=== PATIENT | male | born 1975 | race Caucasian/White ===

== ENCOUNTER 2017-03-09 18:32 | Inpatient (IN) | payer OTHER ==
[~2017-03-09] VITALS: Ht 167.6 cm; Wt 86.2 kg
--- NOTE | ~2017-03-09 | HC ---
[facility] [address] [place] [address] CONSULTATION Name: JOE JULIAN Room #: 438-P ADM IN M.R.#: [id number] Admission: 03/09/17 Attend Phys: Graham Perez MD Discharge: Date of : 71 Report #: [id number] THIS REPORT FOR: //name// CC: Susie Perez REASON FOR CONSULTATION: The patient is a 41-year-old male who was admitted with multiple episodes of hematemesis last evening. HISTORY OF PRESENT ILLNESS: This 41-year-old male reports he has not had any previous gastrointestinal problems. He reports that yesterday afternoon he ate 2 tamales. He said he actually felt a little full and he said he ate only 2 tamales and felt linn than expected. He went out to get something for his kids to eat and came home and just felt nauseated and lightheaded. He did have urgency to have a stool. He did have a bowel movement. He reports it was dark in color, but he said the light was poor and he is not sure if it was black. He did not see any obvious blood. Subsequently, he felt worse and vomited in to the commode. He reported that initially he thought it was salsa which he had eaten, but upon closer look, he realized it was blood. He then had what sounds like a syncopal event and was brought to [facility]. It is my understanding he also vomited ambulance on the way to [facility]. There is no previous history of ulcer disease. He does not use nonsteroidals on a regular basis. He has not had any history of ulcer disease. He drinks alcohol infrequently. PAST MEDICAL HISTORY: He reports he otherwise has been in good health. PAST SURGICAL HISTORY: None. ALLERGIES: No drug allergies. USUAL HOME MEDICINES: None. FAMILY HISTORY: No family ulcer disease or colon cancer. 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 He does drink alcohol on occasion, but he has never smoked. REVIEW OF SYSTEMS: Twelve-point review is completed with the patient and was negative for any other complaints or problems. Specifically, he did not have any fever, chills, or abdominal pain. PHYSICAL EXAMINATION: GENERAL: Well-developed, well-nourished, pleasant male who is awake, alert and oriented, in no acute distress. VITAL SIGNS: Blood pressure 135/82 and pulse of 99. [facility] [address] [place] [address] CONSULTATION Name: JOE JULIAN Room #: 438-P [facility] IN [facility]#: [id number] Admission: 03/09/17 Attend Phys: Graham Perez MD Discharge: Date of : 71 Report #: [id number] HEENT: Anicteric. Pupils equal and round. Oropharynx clear. NECK: Supple. CHEST: Clear. HEART: Regular rate and rhythm, normal S1 and S2. ABDOMEN: Normal bowel sounds, soft, nontender, without hepatosplenomegaly or masses. RECTAL: Not done. EXTREMITIES: Without cyanosis, clubbing, or edema. NEUROLOGIC: Oriented to person, place, and time. Moves all 4 extremities well. ASSESSMENT: Hematemesis associated with syncopal event. PLAN: 1. Upper endoscopy. 2. Monitor hemoglobin. <ELECTRONICALLY SIGNED> By: Wojciech Palomino MD 03/11/17 1604 1146 1656 Wojciech Palomino MD /nt
--- NOTE | ~2017-03-09 | P ---
[facility] [place] [address] PROCEDURE REPORT Name: JOE JULIAN Room #: 438-P [facility] IN M.R.#: [id number] Admission: 03/09/17 Attend Phys: Graham Perez MD Discharge: Date of : 71 Report #: [id number] THIS REPORT FOR: //name// CC: Susie Perez BRIEF HISTORY: The patient is a 41-year-old male who was admitted through the emergency room last evening with hematemesis. He also had a syncopal event associated with his hematemesis. PREOPERATIVE DIAGNOSIS: Hematemesis. POSTOPERATIVE DIAGNOSIS: Small nonbleeding gastric arteriovenous malformations. MEDICATIONS: Deep sedation with propofol per anesthesia. SPECIMEN: None. ESTIMATED BLOOD LOSS: None. PROCEDURE: EGD with BICAP cautery of AVMs. FINDINGS: Prior to conscious sedation, the procedure of upper endoscopy and intervention were discussed with the patient as well as potential risks, benefits, and complications. He indicates he understands and desires to proceed. With the patient in left lateral decubitus position, the [facility] video endoscope was inserted in the cervical esophagus under direct vision without difficulty. Examination of this organ through its entire length revealed normal esophageal mucosa down the squamocolumnar junction. The squamocolumnar junction was inspected and was noted to be unremarkable. The patient had vomited last evening, I did not find evidence of Nataliya-Morejon tear. Scope was advanced in the stomach, was examined on end view as well as retroflexed views. He had normal appearing gastric mucosa. No ulcers were seen. There was no blood in the stomach. The stomach was examined on both end view as well as retroflexed views on multiple occasions. He was noted to have 2 punctate red spots, which may represent AVMs. These were not bleeding. These were treated with BICAP probe. In addition, there were 2 other lesions, which were questionable and were treated as well. Bleeding was not encountered with treating these lesions. No other abnormalities were seen in the stomach. The pylorus was normal. Duodenal bulb was normal. No evidence of ulcer disease. Duodenal sweep down the third portion was normal. The duodenal papilla was identified and noted to be unremarkable. No blood was seen. At that point, the scope was slowly withdrawn and careful circumferential views confirmed the above findings. The patient tolerated the procedure well. [address] [address] PROCEDURE REPORT Name: JULIANJOE Room #: 438-P [facility] IN M.R.#: [id number] Admission: 03/09/17 Attend Phys: Graham Perez MD Discharge: Date of : 71 Report #: [id number] DISPOSITION: The patient with hematemesis last evening and he also describes a syncopal episode. He has lesions, 2 of which are suggestive of AVMs and two others are questionable. These were treated. Another consideration would be a Dieulafoy lesion, which could be more difficult to identify. We will monitor hemoglobin at this point in time. If he has further hematemesis, we may need to repeat endoscopic evaluation. <ELECTRONICALLY SIGNED> By: Wojciech Palomino MD 03/10/17 1631 1141 1551 Wojciech Palomino MD /nt
--- NOTE | ~2017-03-09 | EKG ---
[address] [place] [address] ELECTROCARDIOGRAM REPORT Name: JOE JULIAN Room #: 438-P ADM IN M.R.#: [id number] Admission: 03/09/17 Attend Phys: Graham Perez MD Discharge: Date of : 71 Report #: [id number] THIS REPORT FOR: //name// [facility] ED Test Date: 2017-03-09 Test Time: 19:30:34 Pat Name: JOE JULIAN Department: Room: 438 Gender: M Wire [employer] Operator: Kevin CLEMENTE : 1975 Requested By: Maria M Hall Order Number: [id number] MD: Andres Lara Measurements Intervals Platinum Rate: 82 P: 20 NC: 177 QRS: -31 QRSD: 98 T: 27 QT: 384 QTc: 449 Interpretive Statements Sinus rhythm Left axis deviation No previous ECG available for comparison Electronically Signed On 03-10-2017 8:09:31 [employer] by Andres Lara [email or web address] <ELECTRONICALLY SIGNED> By: Andres Lara MD, [facility] 03/10/17 0809 [id number] Andres Lara MD, FACC /EPI
[2017-03-09 18:37] VITALS: BP 135/93
[2017-03-09 19:09] LABS: ABSOLUTE NEUTROPHILS 11.9 thou/uL (1.4-8.2); BASOPHILS 0.6 % (0.0-2.0); EOSINOPHILS 0.6 % (0.0-3.0); HEMATOCRIT 35.1 % (42.0-52.0); HEMOGLOBIN 11.8 gm/dL (14.0-18.0); LYMPHOCYTES 17.3 % (24.0-44.0); MCH 30.5 pg (26.0-34.0); MCHC 33.8 g/dL (28.0-37.0); MCV 90.5 fL (80.0-100.0); MONOCYTES 4.3 % (1.0-8.0); PLATELET COUNT 296 thou/uL (150-400); POLYS 77.2 % (36.0-66.0); RBC 3.88 mil/uL (4.50-6.00); RDW 12.1 % (10.5-14.5); WBC 15.4 thou/uL (4.0-11.0)
[2017-03-09 19:17] LABS: CALCIUM 8.4 mg/dL (8.5-10.1); CREATININE 1.1 mg/dL (0.7-1.3); POTASSIUM 3.7 mmol/L (3.5-5.1)
[2017-03-09 19:22] LABS: PROTIME 10.6 Seconds (9.3-11.4)
[2017-03-09 19:23] LABS: ALBUMIN 3.4 g/dL (3.4-5.0); TOTAL BILIRUBIN 0.2 mg/dL (<0.1-1.0); TOTAL PROTEIN 6.6 g/dL (6.4-8.2)
[2017-03-09 20:54] VITALS: BP 135/93
[2017-03-09 21:25] VITALS: BP 135/93
[2017-03-09 21:40] VITALS: BP 111/64
[2017-03-09 22:00] VITALS: BP 116/66
[2017-03-09 23:00] VITALS: BP 127/74
[2017-03-09 23:07] LABS: HEMATOCRIT 32.5 % (42.0-52.0); HEMOGLOBIN 11.1 gm/dL (14.0-18.0)
[2017-03-10] VITALS (7 sets, daily range): BP systolic 91–136; BP diastolic 52–82
[2017-03-10 05:13] LABS: HEMATOCRIT 29.7 % (42.0-52.0); HEMOGLOBIN 10.3 gm/dL (14.0-18.0)
[2017-03-10 13:12] LABS: HEMATOCRIT 27.4 % (42.0-52.0); HEMOGLOBIN 9.3 gm/dL (14.0-18.0)
[2017-03-10 17:21] LABS: HEMATOCRIT 26.4 % (42.0-52.0); HEMOGLOBIN 9.1 gm/dL (14.0-18.0)
[2017-03-11 03:17] VITALS: BP 103/62
[2017-03-11 05:38] LABS: HEMATOCRIT 25.6 % (42.0-52.0); HEMOGLOBIN 8.8 gm/dL (14.0-18.0); MCH 31.6 pg (26.0-34.0); MCHC 34.5 g/dL (28.0-37.0); MCV 91.6 fL (80.0-100.0); RBC 2.8 mil/uL (4.50-6.00); RDW 12.5 % (10.5-14.5); WBC 7.3 thou/uL (4.0-11.0)
[2017-03-11 07:37] VITALS: BP 121/77
[2017-03-11 15:35] VITALS: BP 116/61
[2017-03-11 19:39] VITALS: BP 130/64
[2017-03-12 03:30] VITALS: BP 79/45
[2017-03-12 04:01] VITALS: BP 107/67
[2017-03-12 05:31] LABS: MCH 31.2 pg (26.0-34.0); MCHC 34.5 g/dL (28.0-37.0); MCV 90.5 fL (80.0-100.0); RBC 2.88 mil/uL (4.50-6.00); WBC 6.8 thou/uL (4.0-11.0)
[2017-03-12 08:40] VITALS: BP 125/67
[2017-03-12 12:53] VITALS: BP 125/67
[2017-03-12] MEDS ORDERED: PANTOPRAZOLE SO40 M1 PO (13:08)
== END 2017-03-12 15:30 | disposition home or self-care (01) | DRG 378 ==
LOC: EDBD 18:32 → ER 18:32 → EROBS 20:10 → 4S 20:10 → ENTRNSPT 03-12 14:29 → EDTRNSPT 03-12 14:30 → EDTRNSPTSTS 03-12 14:35 → 4S 03-12 15:30
PROVIDERS: Hospitalist; Nurse Practitioner; Nurse Practitioner Acute Care; Physician Assistant
PROC: 0W3P8ZZ Control Bleeding in Gastrointestinal Tract, Via Natural or Artificial Opening Endoscopic (ICD-10-PCS; principal; 2017-03-10)
DX: K31.811 Angiodysplasia of stomach and duodenum with bleeding (principal); D62 Acute posthemorrhagic anemia; E44.0 Moderate protein-calorie malnutrition; K92.0 Hematemesis; D64.9 Anemia, unspecified; R55 Syncope and collapse
CPT/HCPCS: 10100; 62110; 62900; 70005